=== PATIENT | female | born 1935 | race Caucasian/White ===

== ENCOUNTER 2018-07-11 14:25 | Inpatient (IN) | payer OTHER ==
--- NOTE | 2018-07-11 15:03 | EDPHY ---
H & P Smoking Status: Former smoker Time Seen by Provider: 07/11/18 14:54 HPI/ROS: HPI Short of breath. 82-year-old female by private vehicle with her daughter and . This patient had an upper respiratory infection described as a bronchitis with cough about 6 weeks ago. Since this time she is had ongoing shortness of breath and a sensation of rattling in her lungs. She has not had a fever. Her daughter states that she has some intermittent wheezing at times. She has not had a significant cough. Shortness of breath is worse with exertion. No chest pain. ROS: Constitutional: No fever, no chills. No weakness. Eyes: No discharge. No changes in vision. ENT: No sore throat. No nasal congestion or rhinorrhea. Respiratory: As above. Cardiac: No chest pain, no palpitations. Gastrointestinal: No abdominal pain, no vomiting, no diarrhea. Genitourinary: No hematuria. No dysuria or increased frequency with urination. Musculoskeletal: No back pain. No neck pain. No myalgias or arthralgias. Skin: No rashes. Neurological: No headache. No focal weakness or altered sensation. Past medical history: Hypertension, hyperlipidemia, pancreatic cyst, tonsillectomy, CVA. Social history: Former smoker. No alcohol. Here with and daughter. Physical Exam: General Appearance: Alert, pleasant 82-year-old female, she is not in distress. This patient is responding to questions appropriately and in full sentences. This patient appears well-hydrated and well-nourished. Eyes: Pupils equal and round no pallor or injection. No lid edema, erythema or injection. Respiratory: There are no retractions, lungs have good air movement bilaterally. Scant rhonchi left middle and lower lung bearden, fine crackles at the bilateral bases. No tachypnea. Cardiovascular: Regular rate and rhythm. Borderline tachycardia No murmur appreciated. Gastrointestinal: Abdomen is soft and nontender, no masses, bowel sounds normal. No focal tenderness at McBurney's point. No Berry sign. Neurological: Motor sensory function is grossly intact. Cranial nerves are normal. Gait is normal. Skin: Warm and dry, no rashes. Musculoskeletal: Neck is supple and nontender. Extremities are symmetrical. All joints range without pain or impingement. Psychiatric: No agitation. No depression. Database: EKG: Imaging: Procedures: Emergency department course: Triage vital signs reviewed. She is afebrile. She was tachypneic at 28 and hypoxemic at 86%. These were taken shortly after she arrived at the emergency department. On my exam were tachypnea has resolved. IV was placed. She was placed on a occupational health nurse. Chest x-ray and EKG to be obtained. She was started on oxygen at 2 L by nasal cannula. Care turned over to Dr. James Galeano at 3:00 p.m.. Differential Diagnosis: The differential diagnosis on this patient includes but is not limited to bronchitis, CHF, reactive airway disease, pulmonary embolism, acute coronary syndrome. This represents a partial list of diagnoses considered. These considerations are based on history, physical exam, past history, reassessment and diagnostic testing. (Brook Reardon) Constitutional: Initial Vital Signs Temperature (C) 36.3 C 07/11/18 14:36 Heart Rate 89 07/11/18 14:36 Respiratory Rate 28 H 07/11/18 14:36 Blood Pressure 145/116 H 07/11/18 14:36 O2 Sat (%) 86 L 07/11/18 14:36 O2 Delivery Mode Nasal Cannula O2 (L/minute) 2 Allergies/Adverse Reactions: amoxicillin [Amoxicillin] Allergy (Verified 09/12/13 08:34) DOESN'T FEEL RIGHT Home Medications: Medication Instructions Recorded Citalopram [CeleXA] 20 mg PO DAILY 09/12/13 Multivitamins [Multivitamin (*)] 1 each PO DAILY 09/12/13 Acetaminophen [Tylenol 325mg (*)] 325 mg PO Q6 07/11/18 Allopurinol [Allopurinol 100 MG 100 mg PO DAILY 07/11/18 (*)] Atorvastatin Calcium [Lipitor 20 20 mg PO DAILY 07/11/18 mg (*)] Clopidogrel Bisulfate [Clopidogrel] 75 mg PO DAILY 07/11/18 Diclofenac Sodium 1% [Voltaren Gel 1 emerson TP BID PRN 07/11/18 (*)] Lisinopril [Zestril 40 mg (*)] 40 mg PO DAILY 07/11/18 Sennosides [Senokot 8.6mg (OTC)] 1 each PO DAILY PRN 07/11/18 Medical Decision Making ED Course/Re-evaluation: 1511: Patient was signed over to me at 3:00 p.m. Shift change. Patient here in emergency room shortness of breath. She reports to me she has been rather short of breath and having a cough since April. Her family and her thought maybe she had a cold. However her cough has gotten worse more wet sound ink, she is finally convinced to come to the emergency room. She arrives to the emergency room initial room air saturation 86%. She labored breathing in the 30s. She sounds wet on exam. She denies chest pain. EKG interpretation by me on record in [facility] system. Impression time of EKG 1504, sinus rhythm rate of 88, PVC present, LVH present, Q-waves V1 V2 V3. No ST elevation. Patient significant medical history for hypertension, hyperlipidemia, CVA She is not on any oxygen at home. Differential diagnosis includes: Pneumonia, CHF, ACS, PE, pneumothorax, reactive airway disease DDIMER + 625, will proceed with CT Angio given SOB, Hypoxia. High risk for PE. given Age, sedentary, hyppoxia, Sob. Cxr Reviewed. LLL PNA vs. mass. PAH. Atherosclerosis. 1603: Updated patient about DDIMER results, she has agreed for CTA, Cr ok. Electrolytes ok. CBC show low wbc, low plts. Concerning for infection. Will start Iv Levaquin. 1709: CT angiogram of the chest shows no evidence of PE, however does show bilateral pleural effusions, fluid in the fissures. Concerning for CHF. Patient's BNP elevated. IV Lasix 20 mg been ordered. 1709: Updated family and patient. Spoke with the hospitalist service Dr. Moise agrees to admit Admit to PCU Admit for volume overload. Physical exam is consistent with crackles bilaterally wet sounding breath sounds , patient complains of pink tinged sputum, as well as peripheral edema bilaterally pitting. Concerning for CHF. Patient agrees for admission agrees for transfer to . Dr. Moise Agrees to admit BNP elevated. Iv Lasix Ordered. (James Galeano) - Data Points Medications Given: Albuterol/Ipratropium (Duoneb) 3 ml IH QID [facility] Stop: 01/07/19 20:59 Last Admin: 07/12/18 14:52 Dose: 3 ml Allopurinol (Allopurinol) 100 mg PO DAILY [facility] Stop: 01/08/19 08:59 Last Admin: 07/12/18 09:58 Dose: 100 mg Atorvastatin Calcium (Lipitor) 20 mg PO DAILY [facility] Stop: 01/08/19 08:59 Last Admin: 07/12/18 09:58 Dose: 20 mg Citalopram Hydrobromide (Celexa) 20 mg PO DAILY JAMES Stop: 01/08/19 08:59 Last Admin: 07/12/18 09:58 Dose: 20 mg Clopidogrel Bisulfate (Plavix) 75 mg PO DAILY JAMES Stop: 01/08/19 08:59 Last Admin: 07/12/18 09:58 Dose: 75 mg Furosemide (Lasix Injection) 20 mg IVP BIDDIUR JAMES Stop: 01/08/19 08:59 Last Admin: 07/12/18 09:58 Dose: 20 mg Lisinopril (Zestril) 40 mg PO DAILY JAMES Stop: 01/08/19 08:59 Last Admin: 07/12/18 09:58 Dose: 40 mg Multivitamins (Tab-A-Steven) 1 each PO DAILY JAMES Stop: 01/08/19 08:59 Last Admin: 07/12/18 09:58 Dose: 1 each Spironolactone (Aldactone) 12.5 mg PO DAILY JAMES Stop: 01/08/19 11:44 Last Admin: 07/12/18 12:44 Dose: 12.5 mg Discontinued Medications Albuterol/Ipratropium (Duoneb) 3 ml IH EDNOW ONE Stop: 07/11/18 15:11 Last Admin: 07/11/18 15:30 Dose: 3 ml Enoxaparin Sodium (Lovenox) 30 mg SC DAILY JAMES Stop: 01/08/19 08:59 Last Admin: 07/12/18 09:58 Dose: 30 mg Furosemide (Lasix Injection) 20 mg IVP EDNOW ONE Stop: 07/11/18 17:09 Last Admin: 07/11/18 17:15 Dose: 20 mg Levofloxacin/Dextrose (Levaquin 750 Mg (Premix)) 150 mls @ 100 mls/hr IV EDNOW ONE PRN Reason: Protocol Stop: 07/11/18 17:21 Last Admin: 07/11/18 16:29 Dose: 150 mls Point of Care Test Results: CBC CBC Collection Date 07/11/18 CBC Collection Time 15:17 WBC 2.56 RBC 3.95 HGB 13.1 HCT 40.6 PLT 98 Neut # 0.86 Neut 33.6 LYMPH # 1.47 LYMPH 57.4 MCV 102.8 Chemistry 07/11/18 07/11/18 15:24 15:24 POC Sodium 143 mEq/L mEq/L (135-145) POC Potassium 3.4 mEq/L mEq/L (3.3-5.0) POC Chloride 105.0 mEq/L mEq/L (97-110) POC Total CO2 24 mEq/L mEq/L (22-31) POC BUN 21 mg/dL mg/dL (7-23) POC Creatinine 1.0 mg/dL mg/dL (0.6-1.0) POC Glucose 102 mg/dL H mg/dL (70-100) POC Calcium 9.5 mg/dL mg/dL (8.5-10.4) POC Troponin I 0.03 ng/mL ng/mL (0.00-0.08) D-Dimer D-Dimer Collection Date 07/11/18 D-Dimer Collection Time 15:17 D-Dimer (ng/ml) 625 Departure - Departure Disposition: [facility] Inpatient Acute Clinical Impression: Hypoxia CHF (congestive heart failure) Qualifiers: Heart failure type: other Qualified Code(s): I50.9 - Heart failure, unspecified Pulmonary edema Qualifiers: Chronicity: acute Qualified Code(s): J81.0 - Acute pulmonary edema Condition: Serious
[2018-07-11] MEDS ORDERED: IPRATROPIUM/ALBUTEROL 3 ML DEYVIAL IH ONE (15:10)
[2018-07-11] MEDS ORDERED: IOPAMIDOL (ISOVUE 370) 100 ML BTL IV ONE (16:05)
[2018-07-11] MEDS ORDERED: FUROSEMIDE 20 MG/2 ML VIAL IVP ONE (17:08)
[2018-07-11] MEDS ORDERED: ONDANSETRON 4 MG/2 ML VIAL IVP PRN (19:25)
[2018-07-11] MEDS ORDERED: oxyCODONE IR 5 MG TAB PO PRN (19:25)
[2018-07-11] MEDS ORDERED: HYDROCODONE/APAP 5/325 TAB PO PRN (19:25)
[2018-07-11] MEDS ORDERED: HYDROmorphONE/DILAUDID 1 MG/ML INJ IVP PRN (19:25)
[2018-07-11] MEDS ORDERED: ONDANSETRON DISINTEGRATING 4 MG TAB PO PRN (19:25)
[2018-07-11] MEDS ORDERED: ACETAMINOPHEN 325 MG TAB PO PRN (19:25)
[2018-07-11] MEDS ORDERED: PROMETHAZINE HCL 25 MG/ML INJ IVP PRN (19:25)
[2018-07-11] MEDS ORDERED: ALBUTEROL 3 ML DEYVIAL IH PRN (19:25)
--- NOTE | 2018-07-11 19:59 | PDGENHP ---
History and Physical - Chief Complaint sob - History of Present Illness Patient is an 82 yo F with PMH of HTN, HLD and prior CVA presenting with c/o sob , generalized malaise. Of note patient is somewhat distracted at the time of my evaluation, continues to state she needs to go the bathroom, however even after going to the bathroom has a hard time providing linear history. She notes she has been sick since April, largely with sob and fatigue. She denies significant cough but previously when daughter was present she told ER doctor that she has had wheezing intermittently as well. She denies chest pain, denies fever or chills. She notes that nothing makes these sxs better or worse. She denies any leg swelling that she has noticed. She has not had this in the past. History Information - Allergies/Home Medication List Allergies/Adverse Reactions: amoxicillin [Amoxicillin] Allergy (Verified 09/12/13 08:34) DOESN'T FEEL RIGHT Home Medications: Citalopram [CeleXA] 20 mg PO DAILY 09/12/13 [Last Taken 07/11/18] Multivitamins [Multivitamin (*)] 1 each PO DAILY 09/12/13 [Last Taken Unknown] Acetaminophen [Tylenol 325mg (*)] 325 mg PO Q6 07/11/18 [Last Taken Unknown] Allopurinol [Allopurinol 100 MG (*)] 100 mg PO DAILY 07/11/18 [Last Taken ] Atorvastatin Calcium [Lipitor 20 mg (*)] 20 mg PO DAILY 07/11/18 [Last Taken 01/19] Clopidogrel Bisulfate [Clopidogrel] 75 mg PO DAILY 07/11/18 [Last Taken 07/11/18 ] Diclofenac Sodium 1% [Voltaren Gel (*)] 1 emerson TP BID PRN 07/11/18 [Last Taken Unknown] Lisinopril [Zestril 40 mg (*)] 40 mg PO DAILY 07/11/18 [Last Taken 07/11/18] Sennosides [Senokot 8.6mg (OTC)] 1 each PO DAILY PRN 07/11/18 [Last Taken Unknown] I have personally reviewed and updated: family history, medical history, social history, surgical history - Past Medical History CVA, hypertension, hyperlipidemia, psychiatric history (depression) - Surgical History Reports: no pertinent surgical hx - Family History Positive for: non-pertinent - Social History Smoking Status: Former smoker Alcohol Use: None Drug Use: None Additional social history: Review of Systems Review of Systems: ROS: 10pt was reviewed & negative except for what was stated in HPI & below Physical Exam Physical Exam: Temp Pulse Resp BP Pulse Ox 36.6 C 85 20 149/66 H 96 07/11/18 19:47 07/11/18 19:47 07/11/18 19:47 07/11/18 19:47 07/11/18 19:47 O2 (L/minute) 2 Constitutional: not in pain, chronically ill appearing Eyes: PERRL, anicteric sclera Ears, Nose, Mouth, Throat: moist mucous membranes, poor dentition Cardiovascular: regular rate and rhythym, edema Respiratory: reduced air movement, inspiratory crackles Gastrointestinal: normoactive bowel sounds, soft, non-tender abdomen Genitourinary: no bladder tenderness Skin: warm, erythema (ble hyperpigmented) Musculoskeletal: full muscle strength Neurologic: AAOx3 Psychiatric: interacting appropriately, poor memory Lab Data & Imaging Review 07/11/18 19:42 07/11/18 19:42 POC Sodium 143 mEq/L (135-145) 07/11/18 15:24 POC Potassium 3.4 mEq/L (3.3-5.0) 07/11/18 15:24 POC Chloride 105.0 mEq/L (97-110) 07/11/18 15:24 POC Total CO2 24 mEq/L (22-31) 07/11/18 15:24 POC BUN 21 mg/dL (7-23) 07/11/18 15:24 POC Creatinine 1.0 mg/dL (0.6-1.0) 07/11/18 15:24 POC Glucose 102 mg/dL (70-100) H 07/11/18 15:24 POC Calcium 9.5 mg/dL (8.5-10.4) 07/11/18 15:24 POC Troponin I 0.03 ng/mL (0.00-0.08) 07/11/18 15:24 NT-Pro-B Natriuret Pep 80211 pg/mL (0-450) H 07/11/18 14:15 Visualized and Interpreted Chest x-ray results: Yes Chest X-Ray results: other (cardiomegaly, pulm congesion) Visualized and Interpreted imaging results: Yes Interpretation: CTA: no PE, bibasilar interstitial edema, small pleural effusions, no PNa Visualized and Interpreted EKG results: Yes EKG Interpretation: Positive for: LVH, normal sinsus rhythm Assessment & Plan Assessment: CHF (congestive heart failure) (Acute) Pulmonary edema (Acute) Hypoxia (Acute) 82 yo F with PMH of HTN, HLD, CVA presenting with acute hypoxic respiratory failure found to be 2/2 decompensated CHF # acute hypoxic respiratory failure: in the setting of pulmonary edema, pleural effusions, BNP of 29K and new diagnosis of acute chf. No e/o PNA, no PE or other etiology noted. Was initially 86% on RA with associated sob and increased wob, improved to mid 90s on 2L. # acute CHF: without a prior diagnosis of this however limited past records available, given 20mg IVP lasix in ER and will continue that in am, will get echocardiogram, cardiology consult. monitoring on tele, serial trops/ecg, tsh pending. # HTN: currently well controlled, will continue her home medications of lisinopril # hx of CVA: does not appear to have any significant residual sxs, continue plavix, statin # HLD: continue statin # FC # ? dementia--noted to have memory issues, trouble answering questions appropriately # IP status # Patient new to my care. Old records reviewed and summarized as above. Care plan reviewed with ER doctor as above.
[2018-07-11 20:20] LABS: PLATELET COUNT 98 10^3/uL (150-400)
[2018-07-11] MEDS: IPRATROPIUM/ALBUTEROL 3 ML DEYVIAL IH SCH (22:05)
[2018-07-11] MEDS ORDERED: DICLOFENAC SODIUM 1% 100 GM GEL TP PRN (22:28)
[2018-07-11] MEDS ORDERED: SENNOSIDES 1 TAB PO PRN (22:28)
[2018-07-12] MEDS: IPRATROPIUM/ALBUTEROL 3 ML DEYVIAL IH SCH ×4 (04:46→20:06)
--- NOTE | 2018-07-12 08:23 | HOSPPROG ---
Hospitalist Progress Note Assessment/Plan: DIAGNOSES: * Acute hypoxemic respiratory failure * New onset severe systolic congestive heart failure with global cardiomyopathy uncertain etiology * New diagnosis of bronchiectasis by CT scan * Evidence of emphysema by CT scan * Polygonal Mosaic pattern lung attenuation noted on CT scan, uncertain etiology -Diff dx could include post viral, inflammatory, pulm HTN from her CHF and a long list of others; organizing pneumonia does not appear to be likely present * Hypertension chronic and currently controlled * Macrocytosis with mild neutropenia and thrombocytopenia - chronicity and etiology uncertain last CBC here 9 years ago * Hyperlipidemia on statin * History of stroke * Memory deficits, mild-mod PLANS: * Aggressive diuresis * Low-salt diet and is planned extra time with the patient has been describing the necessity for being compulsive with this * The patient and Dr. 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 Mu Mandel and I reviewed her CT scan images with Dr. Alfredo Lee SUBJECTIVE: Still with some cough Slight improvement in her dyspnea No other changes in symptoms I did review with her and her at length. Her cough and dyspnea symptoms seemed to start in April and were very mild at that time with the whole family had a cold but everyone else got over the symptoms. She did not get over the cough which persisted and she has gradually become more dyspneic and this is accelerated over the past week. She has not noticed edema in her legs but it is clearly present at this time. Difficult to determine how long she has had edema but my exam would met leading believe that this is relatively recent onset, see below She does tell me that she was a smoker of eat generally 15 cigarettes per day for approximately 30 years having quit at age 51 No other concerning lung exposures OBJECTIVE Vitals reviewed: Mild hypertension, some tachypnea at times, stable pulse and no fever [employer], my review: Sinus Exam: alert oriented relaxed, some memory deficits are notable in seem to be at her baseline skin warm dry color a bit pale resps not labored lungs very coarse breath sounds, no wheezing heart regular abd soft nondistended nontender, bowel sounds present limbs warm, market pitting edema of both legs from the knees down to the feet iv site ok Lab data: Potassium 3.3 otherwise stable basic met panel TSH is normal Repeat troponin again is normal PROCEDURES DURING THIS ADMISSION: -echocardiogram I reviewed with Dr. Mu Mandel, ejection fraction 15%, dilated LV with global hypokinesis, biatrial enlargement, mildly dilated right ventricle pulmonary pressures 57 small pericardial effusion -CT scan chest with contrast I reviewed the images in detail with Dr. Alfredo Lee of pulmonology and my assessment differs from that of the radiologist who read the study. I see some mild emphysematous changes in the lung apices, some bronchiectasis and likely related scar at both lung bases, along with polygonal mosaic pattern attenuation in both lungs suggestive of either Objective: Vital Signs Temp Pulse Resp BP Pulse Ox 36.6 C 75 20 156/67 H 96 07/12/18 07:08 07/12/18 07:08 07/12/18 07:08 07/12/18 07:08 07/12/18 07:08 Laboratory Results 07/11/18 19:42 07/12/18 03:44 07/11/18 07/12/18 07/13/18 06:59 06:59 06:59 Intake Total 525 Output Total 800 200 Balance -275 -200 - Time Spent With Patient Time Spent with Patient: greater than 35 minutes Time Spent with Patient: Greater than 35 minutes spent on this patients care, greater than 50% of time spent counseling, educating, and coordinating care regarding the above mentioned plan. ICD10 Worksheet Patient Problems: Problems Problem Status Onset CHF (congestive heart failure) Acute Hypoxia Acute Pulmonary edema Acute
[2018-07-12] MEDS ORDERED: ENOXAPARIN 30 MG/0.3 ML SYR SC SCH (09:00)
--- NOTE | 2018-07-12 09:23 | ECHO ---
[email or web address] [address] Main: [phone] Echocardiography Examination Transthoracic Name: JAIME MCCARTHY MR#: [id number] Study Date: 07/12/2018 Study Time: 07:34 AM Date of : 1935 Age: 82 year(s) Height: 180.3 cm (71 in.) Weight: 65.32 kg (144 lb.) BSA: 1.83 m2 Gender: Female Examination: Echo Contrast: Image Quality: Rhythm: Normal sinus rhythm with ectopy Heart Rate: 48 bpm BP: 156 mmHg/67 mmHg Indication: Pulmonary Edema, CHF, Edema Procedure Staff Referring Physician: Research Asst: Chapo Lucia RDCS Reading Physician: Izaiah Mandel MD Requesting Provider: Indication: Pulmonary Edema, CHF, Edema Measurements Chambers AV/MV Label Value Normal Value Label Value Normal Value LVOT Vmax 0.7 m/s (0.7m/s - 1.1m/s) AV PGmax 8 mmHg LVOTd 1.9 cm (1.8cm - 2cm) AV PGmean 3 mmHg LVOT VTI 12.9 cm (18cm - 22cm) AV Vmax 1.4 m/s LVDd, MM 5.7 cm (3.9cm - 5.3cm) MANDO (Vmax) 1.4 cm2 LVDd, 2D 5.4 cm (3.9cm - 5.3cm) MANDO (VTI) 1.5 cm2 LVDs, MM 5.1 cm (2cm - 3.8cm) MV E Vmax 0.68 m/s LVDs, 2D 4.8 cm (2.1cm - 4cm) MV A Vmax 1.05 m/s IVSd, MM 0.9 cm (0.6cm - 0.9cm) MV E/A 0.65 IVSd, 2D 1.1 cm (0.6cm - 1.1cm) MV E/E' lateral 10.6 LVPWd, MM 1 cm (0.6cm - 0.9cm) MV E/E' septal 25.9 (0.45 - 1.25) LVPWd, 2D 1.1 cm MV E' septal 0.03 m/s LVEF, BP 14 % (55% - 70%) MV VTI 23 cm LVEF, 2D 20 % (54% - 74%) MVA D (continuity eq.) 1.6 cm2 LVOT PGmean 1 mmHg MV PGmax 4 mmHg LVOT Vmean 0.45 m/s MV PGmean 2 mmHg RVDd, 2D 2.6 cm (1.9cm - 3.8cm) MV Melida 4.1 cm LA Volume, BP 100 ml (22ml - 52ml) MR Vena Contracta 0.6 cm LADs, 2D 3.6 cm (2.7cm - 3.8cm) MR Reg. Volume 39 ml LAESV index, BP 54.6 ml/m2 MR Reg. Fraction 13 % Additional Vessels MR Vmax 4.4 m/s Patient: JAIME MCCARTHY Study Date: 07/12/2018 Page 1 of 3 07:34 AM Label Value Normal Value MR VTI 177 cm AoRoot, MM 2.9 cm (2.2cm - 3.7cm) MR (ERO) 0.22 cm2 MV E' lateral 0.06 m/s MR PISA Radius 0.7 cm MV E/E' mean 15.11 MR PISA Alias V. 30.8 cm/s MV E' mean 0.04 m/s TV/PV Label Value Normal Value RA Pressure 5 mmHg RVSP 57 mmHg TR Pmax 52 mmHg TR Vmax 3.61 m/s NJ End vera Brad 1.57 cm/s PV PGmax 3 mmHg PV Vmax, Caliper 0.8 m/s (0.6m/s - 0.9m/s) Conclusions The left ventricle appears to be mildly dilated. There is severe global left ventricular hypokinesis with ejection fraction visually estimated at 15-20%. Grade 2 diastolic dysfunction is noted. The right ventricle is mildly dilated with mildly reduced RV systolic function. There is severe left atrial enlargement with moderate right atrial enlargement. Mild mitral annular calcification and aortic sclerosis is present. There is [id number] mitral regurgitation, mild aortic regurgitation and mild tricuspid regurgitation. The estimated RVSP is 57 mmHg. There is a small pericardial effusion. No prior studies. Findings Left Ventricle: Left ventricle is mildly dilated. The EF is visually estimated to be 20 %. EF range is estimated at 15 % - 20 %. There is mild concentric left ventricular hypertrophy. Global hypokinesis. Grade II Diastolic Dysfunction. Left Ventricular Measurements LVDd, 2D is 5.4 cm. Right Ventricle: Normal size right ventricle. Mildly to moderately reduced RV function. Left Atrium: The left atrium is severely dilated. Right Atrium: The right atrium is moderately to severely dilated. Mitral Valve: Mild to moderate mitral regurgitation. No mitral valve stenosis. There is mild mitral calcification. Aortic Valve: Mild aortic regurgitation is present. There is no aortic stenosis. Aortic leaflets exhibit mild calcification. The aortic valve is trileaflet. Tricuspid Valve: Mild tricuspid regurgitation. Right Ventricular systolic pressure is measured at 57 mmHg. Pulmonary artery pressure moderately increased. Pulmonic Valve: Moderate pulmonic valve regurgitation is present. Aorta: The aorta is normal. The aortic root size in M-mode measures 2.9 cm. Aorta Measurements AoRoot, MM is 2.9 cm. Patient: JAIME MCCARTHY Study Date: 07/12/2018 Page 2 of 3 07:34 AM Pericardium: A small pericardial effusion was identified. Exam Details Procedure Ordered: Echo (No Signature Object) Patient: JAIME MCCARTHY Study Date: 07/12/2018 Page 3 of 3 07:34 AM [id number]
[2018-07-12] MEDS: ALLOPURINOL 100 MG TAB PO SCH (09:58)
[2018-07-12] MEDS: ATORVASTATIN CALCIUM 20 MG TAB PO SCH (09:58)
[2018-07-12] MEDS: CITALOPRAM 20 MG TAB PO SCH (09:58)
[2018-07-12] MEDS: CLOPIDOGREL BISULFATE 75 MG TAB PO SCH (09:58)
[2018-07-12] MEDS: FUROSEMIDE 20 MG/2 ML VIAL IVP SCH ×2 (09:58→17:00)
[2018-07-12] MEDS: MULTIVITAMINS 1 EACH TAB PO SCH (09:58)
[2018-07-12] MEDS: LISINOPRIL 40 MG TAB PO SCH (09:58)
--- NOTE | 2018-07-12 11:43 | PDCARCONS ---
Cardiology Consult Reason for Consult: New onset congestive heart failure. Chief Complaint: Shortness of breath, fatigue and cough. Requesting Physician: Dr. Nhung Moise. History of Present Illness: This is a pleasant 82-year-old female seen in consultation on the progressive care unit. She has no prior history of underlying structural, ischemic or arrhythmic heart disease. She did suffer a stroke several years ago. 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 We do not have that information at the present time however she was told that the echocardiogram was noted to be normal. She and her live independently. She walks with a walker and does not drive however overall considers herself fairly healthy. She has had about 8 weeks of symptoms of fatigue associated with exertional dyspnea and a nonproductive cough. She has not had orthopnea or PND. She notes no fever, chills or sweats. She notes no palpitations or anginal quality chest discomfort. Because of these symptoms she came to the emergency department. On arrival to the emergency department she was noted to be hypertensive at 149/66. On 2 L nasal cannula saturations were in the 90% range. Her initial ECG indicated snore will sinus rhythm at 88 beats per minute with occasional PVCs, left axis deviation, left atrial enlargement, left ventricular hypertrophy and strain. Cardiac enzymes have been negative x3. [place] [address]648. Her chest x-ray demonstrated cardiomegaly and pulmonary vascular congestion. She has been admitted to telemetry. She has been started on IV diuretics with a modest improvement in symptoms overnight. History Information - Allergies/Home Medication List Allergies/Adverse Reactions: amoxicillin [Amoxicillin] Allergy (Verified 09/12/13 08:34) DOESN'T FEEL RIGHT Home Medications: Citalopram [CeleXA] 20 mg PO DAILY 09/12/13 [Last Taken 07/11/18] Multivitamins [Multivitamin (*)] 1 each PO DAILY 09/12/13 [Last Taken Unknown] Acetaminophen [Tylenol 325mg (*)] 325 mg PO Q6 07/11/18 [Last Taken Unknown] Allopurinol [Allopurinol 100 MG (*)] 100 mg PO DAILY 07/11/18 [Last Taken ] Atorvastatin Calcium [Lipitor 20 mg (*)] 20 mg PO DAILY 07/11/18 [Last Taken 01/19] Clopidogrel Bisulfate [Clopidogrel] 75 mg PO DAILY 07/11/18 [Last Taken 07/11/18 ] Diclofenac Sodium 1% [Voltaren Gel (*)] 1 emerson TP BID PRN 07/11/18 [Last Taken Unknown] Lisinopril [Zestril 40 mg (*)] 40 mg PO DAILY 07/11/18 [Last Taken 07/11/18] Sennosides [Senokot 8.6mg (OTC)] 1 each PO DAILY PRN 07/11/18 [Last Taken Unknown] I have personally reviewed and updated: family history, medical history, social history, surgical history Past Medical History: Hypertension, hyperlipidemia, prior stroke, history of depression, history of gastric ulcer taking aspirin at the time. - Surgical History Additional surgical history: She recalls having had some form of pancreatic surgery many years ago. - Social History Smoking Status: Former smoker (2 packs a day quit many years ago.) Alcohol Use: None Drug Use: None Additional social history: She is and accompanied by her . The 2 of them live independently. Their son does live with them and helps with her care. She walks with a walker. Physical Exam Physical Exam: Temp Pulse Resp BP Pulse Ox 36.6 C 79 24 H 135/90 H 99 07/12/18 11:01 07/12/18 11:01 07/12/18 11:01 07/12/18 11:01 07/12/18 11:01 O2 (L/minute) 2 Constitutional: no apparent distress, appears nourished, not in pain Eyes: PERRL, anicteric sclera, EOMI Ears, Nose, Mouth, Throat: moist mucous membranes, hearing normal, ears appear normal, no oral mucosal ulcers Cardiovascular: regular rate and rhythym, no murmur, rub, or gallop, JVD (To the upper neck at 30 degrees), edema (1 quarter-inch pitting bilateral lower extremity edema to the lower kelsey), other (Frequent extrasystoles) Respiratory: no respiratory distress, no rales or rhonchi, clear to auscultation Gastrointestinal: normoactive bowel sounds, soft, non-tender abdomen, no palpable masses Genitourinary: no bladder fullness, no bladder tenderness Skin: warm, normal color, no rashes or abrasions, no fluctuance, no induration, No mottled Musculoskeletal: full muscle strength, no muscle tenderness, normal joint ROM, no joint effusions Psychiatric: interacting appropriately, not anxious, not encephalopathic, thought process linear Lymph, Heme, Immunologic: no cervical LAD, no supraclavicular LAD Lab and Imaging 07/11/18 19:42 07/12/18 03:44 WBC 2.73 10^3/uL (3.80-9.50) L 07/11/18 19:42 RBC 4.00 10^6/uL (4.18-5.33) L 07/11/18 19:42 Hgb 13.3 g/dL (12.6-16.3) 07/11/18 19:42 Hct 41.2 % (38.0-47.0) 07/11/18 19:42 MCV 103.0 fL (81.5-99.8) H 07/11/18 19:42 MCH 33.3 pg (27.9-34.1) 07/11/18 19:42 MCHC 32.3 g/dL (32.4-36.7) L 07/11/18 19:42 RDW 16.8 % (11.5-15.2) H 07/11/18 19:42 Plt Count 98 10^3/uL (150-400) L 07/11/18 19:42 MPV 11.1 fL (8.7-11.7) 07/11/18 19:42 Neut % (Auto) Not Reported 07/11/18 19:42 Lymph % (Auto) Not Reported 07/11/18 19:42 [place] % (Auto) Not Reported 07/11/18 19:42 Eos % (Auto) Not Reported 07/11/18 19:42 Baso % (Auto) Not Reported 07/11/18 19:42 Nucleat RBC Rel Count Not Reported 07/11/18 19:42 Absolute Neuts (auto) Not Reported 07/11/18 19:42 Absolute Lymphs (auto) Not Reported 07/11/18 19:42 Absolute Monos (auto) Not Reported 07/11/18 19:42 Absolute Eos (auto) Not Reported 07/11/18 19:42 Absolute Basos (auto) Not Reported 07/11/18 19:42 Absolute Nucleated RBC Not Reported 07/11/18 19:42 Immature Gran % Not Reported 07/11/18 19:42 Seg Neutrophils % 49.0 % 07/11/18 19:42 Band Neutrophils % 1.0 % 07/11/18 19:42 Lymphocytes % 39.0 % 07/11/18 19:42 Monocytes % 8.0 % 07/11/18 19:42 Eosinophils % 0.0 % 07/11/18 19:42 Basophils % 1.0 % 07/11/18 19:42 Metamyelocytes % 2.0 % 07/11/18 19:42 Myelocytes % 0.0 % 07/11/18 19:42 Promyelocytes % 0.0 % 07/11/18 19:42 Blast Cells % 0.0 % 07/11/18 19:42 Immature Gran # Not Reported 07/11/18 19:42 Absolute Seg Neuts 1.34 10^3/uL (1.70-6.50) L 07/11/18 19:42 Absolute Band Neuts 0.03 10^3/uL (0.00-0.70) 07/11/18 19:42 Absolute Lymphocytes 1.06 10^3/uL (1.00-3.00) 07/11/18 19:42 Absolute Monocytes 0.22 10^3/uL (0.30-0.80) L 07/11/18 19:42 Absolute Eosinophils 0.00 10^3/uL (0.03-0.40) L 07/11/18 19:42 Absolute Basophils 0.03 10^3/uL (0.02-0.10) 07/11/18 19:42 Absolute Metamyelocyte 0.05 10^3/mL (0.00-0.00) H 07/11/18 19:42 Absolute Myelocytes 0.00 10^3/mL (0.00-0.00) 07/11/18 19:42 Absolute Promyelocytes 0.00 10^3/uL (0.00-0.00) 07/11/18 19:42 Absolute Plasma Cells 0.00 10^3/uL (0.00-0.00) 07/11/18 19:42 Nucleated RBCs 0 /100 WBC (0-0) 07/11/18 19:42 Absolute Blast Cells 0.00 10^3/uL (0.00-0.00) 07/11/18 19:42 Plasma Cells % 0.0 % 07/11/18 19:42 Platelet Estimate DECREASED (ADEQ) L 07/11/18 19:42 Polychromasia 1+ H 07/11/18 19:42 Oval Macrocytes 1+ H 07/11/18 19:42 Elliptocytes 1+ H 07/11/18 19:42 POC Sodium 143 mEq/L (135-145) 07/11/18 15:24 Sodium 136 mEq/L (135-145) 07/12/18 03:44 POC Potassium 3.4 mEq/L (3.3-5.0) 07/11/18 15:24 Potassium 3.3 mEq/L (3.5-5.2) L 07/12/18 03:44 POC Chloride 105.0 mEq/L (97-110) 07/11/18 15:24 Chloride 103 mEq/L (97-110) 07/12/18 03:44 Carbon Dioxide 27 mEq/l (22-31) 07/12/18 03:44 POC Total CO2 24 mEq/L (22-31) 07/11/18 15:24 Anion Gap 6 mEq/L (6-14) 07/12/18 03:44 POC BUN 21 mg/dL (7-23) 07/11/18 15:24 BUN 20 mg/dL (7-23) 07/12/18 03:44 Creatinine 0.8 mg/dL (0.6-1.0) 07/12/18 03:44 POC Creatinine 1.0 mg/dL (0.6-1.0) 07/11/18 15:24 Estimated GFR > 60 07/12/18 03:44 Glucose 80 mg/dL (70-100) 07/12/18 03:44 POC Glucose 102 mg/dL (70-100) H 07/11/18 15:24 POC Calcium 9.5 mg/dL (8.5-10.4) 07/11/18 15:24 Calcium 8.6 mg/dL (8.5-10.4) 07/12/18 03:44 POC Troponin I 0.03 ng/mL (0.00-0.08) 07/11/18 15:24 Troponin I 0.014 ng/mL (0.000-0.034) 07/12/18 03:44 NT-Pro-B Natriuret Pep 35924 pg/mL (0-450) H 07/11/18 14:15 TSH 2.780 uIU/mL (0.465-4.680) 07/11/18 19:42 Visualized and Interpreted Chest x-ray results: Yes Visualized and Interpreted EKG results: Yes EKG additional interpertation: Normal sinus rhythm at 88 beats per minute. Occasional PVCs. Left axis deviation, left atrial enlargement, LVH with strain. Telemetry: Sinus rhythm. Echocardiogram: There is a full and separately dictated report in the chart. A/P Assessment: This is an 82-year-old female who has a cardiovascular history significant for hypertension and hyperlipidemia who presents with an 8 week history of symptoms of exertional dyspnea, fatigue and nonproductive cough. Her workup thus far including an echocardiogram that indicates an ejection fraction below 20%, and elevated brain natriuretic peptide, abnormal chest x-ray and physical exam findings suggest a new diagnosis of congestive heart failure. Based on the appearance of her echo I think this is most likely nonischemic in nature however she has not had a formal ischemic workup. It may be that this is a hypertensive cardiomyopathy or possibly a postviral cardiomyopathy. It does not appear that she has significant valvular heart disease. While she does have occasional PVCs I think it is unlikely that this represents a PVC induced cardiomyopathy. Plan: 1. She has been admitted and will be monitored on telemetry. 2. She has been started on twice daily IV Lasix. 3. She is already on maximum dose Bradley inhibitor therapy. 4. I started her on a low-dose of Aldactone 12.5 mg once daily. 5. I have also written for her to be on introductory doses of Coreg at 3.125 mg twice daily. 6. We will plan to continue outpatient doses of clopidogrel and atorvastatin. 7. She and I briefly discussed the possibility of proceeding with coronary angiography. She states that she would be willing to undergo this procedure and any cardiovascular therapies that might improve her ejection fraction and outcome. 8. We will follow along with you. Review of Systems Review of Systems: - Review of Systems Constitutional: no symptoms reported EENTM: no symptoms reported Respiratory: see HPI Cardiac: see HPI Gastrointestinal/Abdominal: no symptoms reported Genitourinary: no symptoms Musculoskelatal: no symptoms Skin: no symptoms Neurological: no symptoms Hematologic/Lymphatic: no symptoms reported Immunologic/allergic: no symptoms reported All Other Systems: Reviewed and Negative
[2018-07-12] MEDS: SPIRONOLACTONE 25 MG TAB PO SCH (12:44)
--- NOTE | 2018-07-12 12:52 | PDMN ---
Medical Necessity Medical necessity: Pt meets IP criteria per & MCG M-190; est los >2 mn for eval/tx of new-onset CHF w/hypoxic respiratory failure (requiring 2L O2 to maintain sats >90%) in the setting of pulmonary edema & pleural effusions; admit for further workup/monitoring, Cardiology consult & IV diuretics; comorbid advanced age, CVA, possible dementia; per H&P & order 07/11/18
--- NOTE | 2018-07-12 13:37 | CPEKG ---
Test Reason : OPEN Blood Pressure : / mmHG Vent. Rate : 088 BPM Atrial Rate : 086 BPM P-R Int : 168 ms QRS Dur : 094 ms QT Int : 398 ms P-R-T Axes : 081 -34 129 degrees QTc Int : 482 ms Sinus rhythm Ventricular premature complex LVH with secondary repolarization abnormality Anterior infarct, old Confirmed by Chandni Mathur ([id number]) on 07/12/2018 1:36:40 PM Referred By: Brook Reardon Confirmed By:Chandni Mathur
[2018-07-12] MEDS: AZITHROMYCIN 250 MG TAB PO SCH (16:07)
[2018-07-12] MEDS: FUROSEMIDE 40 MG/4 ML VIAL IVP SCH (16:07)
--- NOTE | 2018-07-12 16:39 | ASMTCMCOM ---
CM Note CM Note Notes: Pt in for CHF, resides with and has dghtr local. Today OT rec home care, PT rec SNF. Spoke with pt and Juan at bedside. This CM provided [facility] SNF list and provided education. Pt plans to discuss with family and let CM know thoughts on SNF tomorrow. Juan plans to drive to visit pt daily so a close location is important, they report [facility] and [facility] are closest SNFs to pt home. CM to follow. D/c plan of care: SNF vs C Date Signed: 07/12/2018 04:38 PM Electronically Signed By:KATHLEEN Tyler
[2018-07-12] MEDS: CARVEDILOL 3.125 MG TAB PO SCH (18:13)
--- NOTE | 2018-07-12 20:15 | CPEKG ---
Test Reason : OPEN Blood Pressure : / mmHG Vent. Rate : 076 BPM Atrial Rate : 077 BPM P-R Int : 156 ms QRS Dur : 092 ms QT Int : 422 ms P-R-T Axes : 078 -33 172 degrees QTc Int : 475 ms Sinus rhythm Ventricular trigeminy left anterior fasicular block anterior q waves Confirmed by William Loera ([id number]) on 07/12/2018 8:14:52 PM Referred By: Nhung Moise Confirmed By:William Loera
[2018-07-13] MEDS: IPRATROPIUM/ALBUTEROL 3 ML DEYVIAL IH SCH ×2 (05:07→10:44)
[2018-07-13] MEDS: AZITHROMYCIN 250 MG TAB PO SCH (08:32)
[2018-07-13] MEDS: LISINOPRIL 40 MG TAB PO SCH (08:33)
[2018-07-13] MEDS: SPIRONOLACTONE 25 MG TAB PO SCH (08:34)
[2018-07-13] MEDS: ALLOPURINOL 100 MG TAB PO SCH (08:34)
[2018-07-13] MEDS: MULTIVITAMINS 1 EACH TAB PO SCH (08:34)
[2018-07-13] MEDS: ATORVASTATIN CALCIUM 20 MG TAB PO SCH (08:34)
[2018-07-13] MEDS: CLOPIDOGREL BISULFATE 75 MG TAB PO SCH (08:34)
[2018-07-13] MEDS: FUROSEMIDE 40 MG/4 ML VIAL IVP SCH (08:35)
[2018-07-13] MEDS: CARVEDILOL 3.125 MG TAB PO SCH (08:35)
[2018-07-13] MEDS: ENOXAPARIN 40 MG/0.4 ML SYR SC SCH (08:35)
[2018-07-13] MEDS: CITALOPRAM 20 MG TAB PO SCH (08:35)
[2018-07-13] MEDS ORDERED: CARVEDILOL 3.125 MG TAB PO SCH (09:33)
--- NOTE | 2018-07-13 10:07 | SOAPPROG ---
[facility] Progress Note Assessment/Plan: Assessment: 82-year-old female with a newly diagnosed cardiomyopathy with an ejection fraction of below 20% associated with new onset congestive heart failure. This is likely nonischemic in nature. She does not have associated significant valvular disease. She is doing well with the recent institution of diuretic therapy and the administration of beta-blockers. Her chemistry panel this morning was significantly abnormal with a very low chloride level. Plan: 1. I did increase her Coreg up to 6.25 mg twice daily. 2. I have given a dose of p.o. Potassium. 3. I would like to recheck her chemistries this afternoon. 4. We will plan to continue with IV Lasix. 5. At some point in the near future we will plan a diagnostic right and left heart catheterization. 07/13/18 10:05 Subjective: She is doing well today and has no specific cardiovascular complaints. She has had a net 1225 cc diuresis since admission. Lower extremity edema has improved. She notes that she is breathing a little more easily currently. She has been started on low-dose Coreg and tolerating this medication without side effects. Telemetry indicates sinus rhythm with frequent PVCs. Objective: Vital Signs Temp Pulse Resp BP Pulse Ox 36.6 C 88 15 140/64 H 91 L 07/13/18 09:01 07/13/18 09:01 07/13/18 09:01 07/13/18 09:01 07/13/18 09:01 Laboratory Results 07/11/18 19:42 07/13/18 04:20 07/12/18 07/13/18 07/14/18 05:59 05:59 05:59 Intake Total 400 300 Output Total 550 1250 Balance -150 -950 Physical Exam - Physical Exam General Appearance: WD/WN, no apparent distress Neck: non-tender, full range of motion Respiratory: chest non-tender, lungs clear, decreased breath sounds (Right base) Cardiac/Chest: regular rate, rhythm, edema (Trace), JVD, No gallop Peripheral Pulses: 2+: carotid (R), carotid (L) Abdomen: non-tender, soft Pelvic Exam: deferred Rectal: deferred ICD10 Worksheet Patient Problems: Problems Problem Status Onset CHF (congestive heart failure) Acute Hypoxia Acute Pulmonary edema Acute chronic disease mgmt/transitional care Acute
[2018-07-13] MEDS: POTASSIUM CL 20 MEQ TAB PO ONE ×2 (10:23→10:28)
[2018-07-13] MEDS ORDERED: PROTOCOL MAGNESIUM 1 DOSE IV PRN (12:17)
[2018-07-13] MEDS ORDERED: PROTOCOL POTASSIUM 1 DOSE MISC PRN (12:17)
--- NOTE | 2018-07-13 12:27 | HOSPPROG ---
Hospitalist Progress Note Assessment/Plan: DIAGNOSES: * Acute hypoxemic respiratory failure * New onset severe systolic congestive heart failure with global cardiomyopathy uncertain etiology * Hypomagnesemia, hypochloremia, hypokalemia * New diagnosis of bronchiectasis by CT scan * New diagnosis of COPD * Polygonal Mosaic pattern lung attenuation noted on CT scan, uncertain etiology -Diff dx could include post viral, inflammatory, pulm HTN from her CHF and a long list of others; organizing pneumonia does not appear to be likely present * Hypertension chronic and currently controlled * Macrocytosis with mild neutropenia and thrombocytopenia - chronicity and etiology uncertain last CBC here 9 years ago * Hyperlipidemia on statin * History of stroke * Memory deficits, mild-mod PLANS: * Continue IV Lasix and p.o. Aldactone diuresis * Begin replacement of electrolytes by protocol * Low-salt diet and I spent extra time with the patient has been describing the necessity for being compulsive with this * Left heart catheterization and right heart catheterization in near future * Will begin Combivent meter dose inhaler therapy using a spacer and have respiratory therapy work with her on a education for inhaler use, will also add Advair * I have ordered vitamin B12 level as she has macrocytosis * Sed rate and CRP ordered * Continue empiric azithromycin at present * Will try to get records from her previous [facility]er where she had an echocardiogram 4 years ago * Discussed in detail with the patient and her that she will need very careful and consistent outpatient follow-up in Heart failure Clinic along with pulmonology Clinic Seen by me on hospitalist rounds as well as multidisciplinary rounds today Reviewed with Dr. Mandel for Cardiology SUBJECTIVE: Some improvement in dyspnea today No new symptoms OBJECTIVE Vitals reviewed: All stable without fever I&O approximately 1 L out overnight Derrick Hand, my review: Sinus Exam: alert oriented relaxed, some memory deficits are notable in seem to be at her baseline skin warm dry color a bit pale resps not labored lungs still with coarse breath sounds, no wheezing heart regular abd soft nondistended nontender, bowel sounds present limbs warm, still with edema of both legs with pitting but less than yesterday iv site ok Lab data: K and Mag a bit low Renal function stable Notably has appeared to develop high anion gap but with a high CO2 level this appears to be caused by a low chloride level in her case TSH is normal PROCEDURES DURING THIS ADMISSION: -echocardiogram I reviewed with Dr. Mu Mandel, ejection fraction 15%, dilated LV with global hypokinesis, biatrial enlargement, mildly dilated right ventricle pulmonary pressures 57 small pericardial effusion -CT scan chest with contrast I reviewed the images in detail with Dr. Alfredo Lee of pulmonology and my assessment differs from that of the radiologist who read the study. I see some mild emphysematous changes in the lung apices, some bronchiectasis and likely related scar at both lung bases, along with polygonal mosaic pattern attenuation in both lungs suggestive of either -bedside spirometry Objective: Vital Signs Temp Pulse Resp BP Pulse Ox 36.7 C 76 18 125/68 H 93 07/13/18 11:55 07/13/18 11:55 07/13/18 11:55 07/13/18 11:55 07/13/18 11:55 Laboratory Results 07/11/18 19:42 07/13/18 04:20 07/12/18 07/13/18 07/14/18 06:59 06:59 06:59 Intake Total 400 300 Output Total 550 1250 Balance -150 -950 - Time Spent With Patient Time Spent with Patient: greater than 35 minutes Time Spent with Patient: Greater than 35 minutes spent on this patients care, greater than 50% of time spent counseling, educating, and coordinating care regarding the above mentioned plan. ICD10 Worksheet Patient Problems: Problems Problem Status Onset CHF (congestive heart failure) Acute Hypoxia Acute Pulmonary edema Acute chronic disease mgmt/transitional care Acute
--- NOTE | 2018-07-13 14:58 | ASMTCMCOM ---
CM Note CM Note Notes: 07/13/2018 Case Management Note Met w/pt Juan [phone] and daughter Ingrid [phone]. Discussed recommendation for SNF rehab. All in agreement. First choice is [facility]. Faxed referrals to [facility] and [facility]. Both accepted pt. Pt chose [facility] which is close to home and easier for Juan to visit daily. Case Management d/c poc: [facility]. Case Management to follow. Date Signed: 07/13/2018 02:57 PM Electronically Signed By:Michelle Lane RN
[2018-07-13] MEDS: IPRATROPIUM/ALBUTEROL 4GM MDI IH SCH ×2 (15:19→22:10)
[2018-07-13] MEDS ORDERED: MAGNESIUM SULF 2 GM/WATER 50 ML IV ONE (15:31)
[2018-07-13] MEDS: CARVEDILOL 6.25 MG TAB PO SCH (17:33)
[2018-07-13] MEDS ORDERED: POTASSIUM CL 10 MEQ TAB PO ONE (19:35)
[2018-07-13] MEDS: FLUTICASONE/SALMETER 100/50MCG DISKUS IH SCH (22:10)
[2018-07-14 04:32] LABS: PLATELET COUNT 98 10^3/uL (150-400)
[2018-07-14] MEDS: IPRATROPIUM/ALBUTEROL 4GM MDI IH SCH ×4 (05:25→20:18)
[2018-07-14] MEDS ORDERED: POTASSIUM CL 10 MEQ TAB PO ONE (08:14)
[2018-07-14] MEDS: ATORVASTATIN CALCIUM 20 MG TAB PO SCH (08:36)
[2018-07-14] MEDS: CITALOPRAM 20 MG TAB PO SCH (08:37)
[2018-07-14] MEDS: ALLOPURINOL 100 MG TAB PO SCH (08:37)
[2018-07-14] MEDS: CLOPIDOGREL BISULFATE 75 MG TAB PO SCH (08:37)
[2018-07-14] MEDS: CARVEDILOL 6.25 MG TAB PO SCH ×2 (08:37→17:12)
[2018-07-14] MEDS: MULTIVITAMINS 1 EACH TAB PO SCH (08:37)
[2018-07-14] MEDS: SPIRONOLACTONE 25 MG TAB PO SCH (08:37)
[2018-07-14] MEDS: LISINOPRIL 40 MG TAB PO SCH (08:38)
[2018-07-14] MEDS: AZITHROMYCIN 250 MG TAB PO SCH (08:38)
[2018-07-14] MEDS: ENOXAPARIN 40 MG/0.4 ML SYR SC SCH (08:38)
[2018-07-14] MEDS: FUROSEMIDE 20 MG/2 ML VIAL IVP SCH (08:39)
[2018-07-14] MEDS: FLUTICASONE/SALMETER 100/50MCG DISKUS IH SCH ×2 (10:20→20:18)
--- NOTE | 2018-07-14 12:42 | PDCARPN ---
Cardiology Progress Note Chief Complaint: SOB Assessment/Plan: Assessment: Vernell is a 82-year-old female with a newly diagnosed cardiomyopathy with EF 20%, and new onset CHF. This is likely nonischemic. She does not have associated significant valvular disease. She is doing well on diuretic therapy and beta-blockers. Creatinine 0.8 today. Coreg up-titrated to 6.25 mg twice daily yesterday with good tolerance. She reports no lightheadedness or SOB. Plan: We continue IV Lasix today, with consideration to switch to Lasix oral tomorrow. Plan for diagnostic right and left heart catheterization before discharge. 07/14/18 12:28 Subjective: I feel better today. My breathing is easier. Reviewed/Discussed With: family (), hospitalist (Chandler Boyd MD -- Hospitalist), multidisciplinary team, other (Mu Mandel MD) Time Spent with Patient: greater than 25 minutes Time Spent with Patient: Greater than 25 minutes spent on this patients care, greater than 50% of time spent counseling, educating, and coordinating care regarding the above mentioned plan. Objective: Vital Signs (8 Hrs) Temp Pulse Resp BP Pulse Ox 07/14/18 11:39 36.4 C 77 16 114/62 98 07/14/18 08:37 81 137/83 H 07/14/18 07:39 36.6 C 79 20 137/83 H 97 07/14/18 05:26 74 16 Intake/Output (24 Hrs) 07/13/18 07/14/18 07/15/18 05:59 05:59 05:59 Intake Total 300 Output Total 1250 2000 Balance -950 -2000 Intake: Oral (ml) 300 IV Intake (ml) 0 Output: Urine (ml) 1250 2000 Bedside Commode 1050 1000 Catheter 1000 Incontinence 200 Other: Weight 61.2 kg Number of Voids Bedside Commode 1 Incontinence 3 1 1 Result Diagrams: 07/14/18 03:40 07/14/18 03:40 Cardiac Labs: Cardiac Lab Results (72 Hrs) 07/12/18 07/11/18 03:44 19:42 Troponin I 0.014 0.013 - Physical Exam Constitutional: no apparent distress Cardiovascular: regular rate and rhythm, no rubs, no gallops Peripheral Pulses: 1+: dorsalis-pedis (R), dorsalis-pedis (L) Respiratory: no crackles, no wheezes, reduced air movement Skin: warm, no edema Neurologic: AAOx3 Psychiatric: cooperative, interactive ICD10 Worksheet Patient Problems: Problems Problem Status Onset chronic disease mgmt/transitional care Acute CHF (congestive heart failure) Acute Pulmonary edema Acute Hypoxia Acute
--- NOTE | 2018-07-14 12:59 | HOSPPROG ---
Hospitalist Progress Note Assessment/Plan: DIAGNOSES: * Acute hypoxemic respiratory failure - multiple etiologies, with acute systolic CHF prominent * New onset severe systolic congestive heart failure with global cardiomyopathy uncertain etiology * Hypomagnesemia, hypochloremia, hypokalemia * New diagnosis of bronchiectasis by CT scan * New diagnosis of COPD * Polygonal Mosaic pattern lung attenuation noted on CT scan, uncertain etiology -Diff dx could include post viral, inflammatory, pulm HTN from her CHF and a long list of others; organizing pneumonia does not appear to be likely present * Hypertension chronic and currently controlled * Macrocytosis with pancytopenia - chronicity and etiology uncertain last CBC here 9 years ago -neutrophils and platelets lower today * Hyperlipidemia on statin * History of stroke * Memory deficits, mild-mod, chronic and stable PLANS: * Switch to p.o. Lasix, continue Aldactone * Begin replacement of electrolytes by protocol * Low-salt diet * Left heart catheterization and right heart catheterization in near future as outpatient * Continue new Combivent and Advair inhalers * At some point she should have hematologic assessment for her macrocytic anemia * Sed rate and CRP ordered * Continue empiric azithromycin at present * Continue attempt increase activity with physical occupational therapy * Will need care home facility at discharge * Will need chronic follow-up in Heart failure Clinic and pulmonology Clinic Seen by me on hospitalist rounds as well as multidisciplinary rounds today Reviewed with Dr. Mandel of Cardiology SUBJECTIVE: Some improvement in dyspnea today No new symptoms OBJECTIVE Vitals reviewed: All stable without fever I&O approximately 2 L out past 24 Miter Cutter, my review: Sinus Exam: alert oriented relaxed, some memory deficits are notable in seem to be at her baseline skin warm dry color a bit pale resps not labored lungs still with coarse breath sounds, no wheezing heart regular abd soft nondistended nontender, bowel sounds present limbs warm, still with edema of both legs with pitting but less than yesterday iv site ok Lab data: BUN up to 24 otherwise stable metabolic panel Notably neutrophils though decreased to 800, hemoglobin a bit lower as MCV still high, platelets still low but stable PROCEDURES DURING THIS ADMISSION: -echocardiogram I reviewed with Dr. Mu Mandel, ejection fraction 15%, dilated LV with global hypokinesis, biatrial enlargement, mildly dilated right ventricle pulmonary pressures 57, small pericardial effusion -CT scan chest with contrast I reviewed the images in detail with Dr. Alfredo Lee of pulmonology and my assessment differs from that of the radiologist who read the study. I see some mild emphysematous changes in the lung apices, some bronchiectasis and likely related scar at both lung bases, along with polygonal mosaic pattern attenuation in both lungs which may be due to pulmonary edema -bedside spirometry Objective: Vital Signs Temp Pulse Resp BP Pulse Ox 36.4 C 77 16 114/62 98 07/14/18 11:39 07/14/18 11:39 07/14/18 11:39 07/14/18 11:39 07/14/18 11:39 Laboratory Results 07/14/18 03:40 07/14/18 03:40 07/13/18 07/14/18 07/15/18 06:59 06:59 06:59 Intake Total 300 Output Total 1250 2000 Balance -950 -2000 - Time Spent With Patient Time Spent with Patient: greater than 35 minutes Time Spent with Patient: Greater than 35 minutes spent on this patients care, greater than 50% of time spent counseling, educating, and coordinating care regarding the above mentioned plan. ICD10 Worksheet Patient Problems: Problems Problem Status Onset CHF (congestive heart failure) Acute Hypoxia Acute Pulmonary edema Acute chronic disease mgmt/transitional care Acute
[2018-07-14] MEDS ORDERED: MAGNESIUM SULF 1 GM/DEXTROSE 100 ML IV ONE (14:42)
[2018-07-15] MEDS: IPRATROPIUM/ALBUTEROL 4GM MDI IH SCH ×4 (05:40→20:12)
[2018-07-15] MEDS: FUROSEMIDE 20 MG/2 ML VIAL IVP SCH (09:22)
[2018-07-15] MEDS: SPIRONOLACTONE 25 MG TAB PO SCH (09:23)
[2018-07-15] MEDS: CARVEDILOL 6.25 MG TAB PO SCH ×2 (09:23→18:05)
[2018-07-15] MEDS: ATORVASTATIN CALCIUM 20 MG TAB PO SCH (09:23)
[2018-07-15] MEDS: LISINOPRIL 40 MG TAB PO SCH (09:23)
[2018-07-15] MEDS: ALLOPURINOL 100 MG TAB PO SCH (09:23)
[2018-07-15] MEDS: ENOXAPARIN 40 MG/0.4 ML SYR SC SCH (09:24)
[2018-07-15] MEDS: MULTIVITAMINS 1 EACH TAB PO SCH (09:24)
[2018-07-15] MEDS: CITALOPRAM 20 MG TAB PO SCH (09:24)
[2018-07-15] MEDS: AZITHROMYCIN 250 MG TAB PO SCH (09:24)
[2018-07-15] MEDS: CLOPIDOGREL BISULFATE 75 MG TAB PO SCH (09:24)
[2018-07-15] MEDS: FLUTICASONE/SALMETER 100/50MCG DISKUS IH SCH ×2 (10:01→20:11)
--- NOTE | 2018-07-15 10:06 | PDCARPN ---
Cardiology Progress Note Assessment/Plan: Assessment: Vernell is a 82-year-old female with a newly diagnosed cardiomyopathy with EF 20%, and new onset CHF. This is likely nonischemic. She does not have associated significant valvular disease. She is doing well on diuretic therapy and beta-blockers. Creatinine 0.8 today. Coreg up-titrated to 6.25 mg twice daily yesterday with good tolerance. She reports no lightheadedness or SOB. Plan: We continue IV Lasix today, with consideration to switch to Lasix oral tomorrow. Plan for diagnostic right and left heart catheterization before discharge, or as an out-patient. 07/14/18 12:28 07/15/18 09:54 Feeling better today. NO SOB, no chest pain, and does not feel that she is retaining fluid in abdomen. Has good appetite, and ordering her breakfast. She is looking forward to eating this morning. Chronic CHF She has lost 13.3 Kg this visit. Continue on Aldactone and is now on Oral Lasix for diuresis maintenance. BNP today 10,300 CMP with EF 20%. On Carvedilol 6.25 mg BID with good tolerance..BP 117/70 today. Reviewed/Discussed With: family Objective: Vital Signs (8 Hrs) Temp Pulse Resp BP Pulse Ox 07/15/18 07:20 36.9 C 75 14 117/70 98 07/15/18 03:24 36.5 C 74 15 143/60 H 98 Intake/Output (24 Hrs) 07/14/18 07/15/18 07/16/18 05:59 05:59 05:59 Intake Total 1170 Output Total 1999 500 Balance -1999 670 Intake: Oral (ml) 1070 IV Intake (ml) 0 IV Infused (ml) 100 Magnesium Sulf 1 gm/ 100 Dextrose 100 ml @ 100 mls /hr IV ONCE ONE Rx#: [id number] Output: Urine (ml) 2000 250 Bedside Commode 1000 Catheter 1000 Toilet 250 Urine/Stool Mix (ml) 250 Toilet 250 Other: Weight 51.284 kg Number of Voids Incontinence 1 2 Toilet 1 Number of Stools Incontinence 1 Toilet 1 Result Diagrams: 07/14/18 03:40 07/15/18 03:23 - Physical Exam Constitutional: no apparent distress Cardiovascular: no rubs, no gallops, irregularly irregular Respiratory: no crackles, no wheezes, reduced air movement Skin: warm, no edema Neurologic: AAOx3 Psychiatric: cooperative, interactive ICD10 Worksheet Patient Problems: Problems Problem Status Onset chronic disease mgmt/transitional care Acute CHF (congestive heart failure) Acute Pulmonary edema Acute Hypoxia Acute
--- NOTE | 2018-07-15 11:43 | PDCONSULT ---
Shank Rander Note: Hematology/oncology consultation note Requesting physician: Dr. Brennan Boyd Reason for consultation: Thrombocytopenia and leukopenia History of present illness: Vernell is an 82-year-old female with no prior hematologic history who we are seeing for evaluation of leukopenia and thrombocytopenia. She does have a history of hypertension hyperlipidemia and prior stroke. She currently lives at home with her and lives independently. She was admitted to [facility] for workup of underlying shortness of breath. She was found to be hypoxic and further workup demonstrated an elevated BNP. She has since been diuresed for symptomatic heart failure. On admission she was found to have a slight leukopenia with a white blood cell count 2.5 and platelets being 98 with a normal hemoglobin. She denies any chest pain, weight loss, night sweats, or abdominal pain. Review of systems: 12 point review of systems was obtained and was otherwise negative unless stated in HPI. Past Surgical and medical history: History of prior ischemic stroke Hypertension Hyperlipidemia History of gastric ulcers Pancreatic surgery Family history: No history of any blood or cancer disorders within the family Social history: She lives independently with her locally. She is a former smoker. Medications: Reviewed in the EMR Allergies: Amoxicillin Physical examination: Temp Pulse Resp BP Pulse Ox 36.9 C 70 10 L 134/63 H 96 07/15/18 07:20 07/15/18 10:06 07/15/18 10:06 07/15/18 09:35 07/15/18 10:06 O2 (L/minute) 1 General: Elderly female appears comfortable sitting in her hospital chair in no acute distress HEENT: Nasal cannula in place oropharynx is clear Cardiovascular: Regular rate and rhythm Pulmonary: Clear to auscultation GI: Soft nontender nondistended bowel sounds are present, evaluation organomegaly slightly compromised by her sitting up Extremities: No cyanosis clubbing or edema Lymph: No appreciable lymphadenopathy Skin: No skin lesions Psych: Appropriate affect WBC 2.51 10^3/uL (3.80-9.50) L 07/14/18 03:40 RBC 3.79 10^6/uL (4.18-5.33) L 07/14/18 03:40 Hgb 12.4 g/dL (12.6-16.3) L 07/14/18 03:40 Hct 38.2 % (38.0-47.0) 07/14/18 03:40 MCV 100.8 fL (81.5-99.8) H 07/14/18 03:40 MCH 32.7 pg (27.9-34.1) 07/14/18 03:40 MCHC 32.5 g/dL (32.4-36.7) 07/14/18 03:40 RDW 16.2 % (11.5-15.2) H 07/14/18 03:40 Plt Count 98 10^3/uL (150-400) L 07/14/18 03:40 MPV 10.6 fL (8.7-11.7) 07/14/18 03:40 Neut % (Auto) 32.6 % (39.3-74.2) L 07/14/18 03:40 Lymph % (Auto) 57.8 % (15.0-45.0) H 07/14/18 03:40 [place] % (Auto) 8.0 % (4.5-13.0) 07/14/18 03:40 Eos % (Auto) 0.0 % (0.6-7.6) L 07/14/18 03:40 Baso % (Auto) 0.4 % (0.3-1.7) 07/14/18 03:40 Nucleat RBC Rel Count 0.0 % (0.0-0.2) 07/14/18 03:40 Absolute Neuts (auto) 0.82 10^3/uL (1.70-6.50) L 07/14/18 03:40 Absolute Lymphs (auto) 1.45 10^3/uL (1.00-3.00) 07/14/18 03:40 Absolute Monos (auto) 0.20 10^3/uL (0.30-0.80) L 07/14/18 03:40 Absolute Eos (auto) 0.00 10^3/uL (0.03-0.40) L 07/14/18 03:40 Absolute Basos (auto) 0.01 10^3/uL (0.02-0.10) L 07/14/18 03:40 Absolute Nucleated RBC 0.00 10^3/uL (0-0.01) 07/14/18 03:40 Immature Gran % 1.2 % (0.0-1.1) H 07/14/18 03:40 Seg Neutrophils % 49.0 % 07/11/18 19:42 Band Neutrophils % 1.0 % 07/11/18 19:42 Lymphocytes % 39.0 % 07/11/18 19:42 Monocytes % 8.0 % 07/11/18 19:42 Eosinophils % 0.0 % 07/11/18 19:42 Basophils % 1.0 % 07/11/18 19:42 Metamyelocytes % 2.0 % 07/11/18 19:42 Myelocytes % 0.0 % 07/11/18 19:42 Promyelocytes % 0.0 % 07/11/18 19:42 Blast Cells % 0.0 % 07/11/18 19:42 Immature Gran # 0.03 10^3/uL (0.00-0.10) 07/14/18 03:40 Absolute Seg Neuts 1.34 10^3/uL (1.70-6.50) L 07/11/18 19:42 Absolute Band Neuts 0.03 10^3/uL (0.00-0.70) 07/11/18 19:42 Absolute Lymphocytes 1.06 10^3/uL (1.00-3.00) 07/11/18 19:42 Absolute Monocytes 0.22 10^3/uL (0.30-0.80) L 07/11/18 19:42 Absolute Eosinophils 0.00 10^3/uL (0.03-0.40) L 07/11/18 19:42 Absolute Basophils 0.03 10^3/uL (0.02-0.10) 07/11/18 19:42 Absolute Metamyelocyte 0.05 10^3/mL (0.00-0.00) H 07/11/18 19:42 Absolute Myelocytes 0.00 10^3/mL (0.00-0.00) 07/11/18 19:42 Absolute Promyelocytes 0.00 10^3/uL (0.00-0.00) 07/11/18 19:42 Absolute Plasma Cells 0.00 10^3/uL (0.00-0.00) 07/11/18 19:42 Nucleated RBCs 0 /100 WBC (0-0) 07/11/18 19:42 RBC/WBC/PLT Morphology TNP 07/14/18 03:40 Absolute Blast Cells 0.00 10^3/uL (0.00-0.00) 07/11/18 19:42 Plasma Cells % 0.0 % 07/11/18 19:42 Platelet Estimate TNP 07/14/18 03:40 Polychromasia 1+ H 07/11/18 19:42 Oval Macrocytes 1+ H 07/11/18 19:42 Elliptocytes 1+ H 07/11/18 19:42 ESR < 1 MM/HR (0-30) 07/14/18 03:40 POC Sodium 143 mEq/L (135-145) 07/11/18 15:24 Sodium 136 mEq/L (135-145) 07/15/18 03:23 POC Potassium 3.4 mEq/L (3.3-5.0) 07/11/18 15:24 Potassium 4.0 mEq/L (3.5-5.2) 07/15/18 03:23 POC Chloride 105.0 mEq/L (97-110) 07/11/18 15:24 Chloride 100 mEq/L (97-110) 07/15/18 03:23 Carbon Dioxide 28 mEq/l (22-31) 07/15/18 03:23 POC Total CO2 24 mEq/L (22-31) 07/11/18 15:24 Anion Gap 8 mEq/L (6-14) 07/15/18 03:23 POC BUN 21 mg/dL (7-23) 07/11/18 15:24 BUN 29 mg/dL (7-23) H 07/15/18 03:23 Creatinine 0.8 mg/dL (0.6-1.0) 07/15/18 03:23 POC Creatinine 1.0 mg/dL (0.6-1.0) 07/11/18 15:24 Estimated GFR > 60 07/15/18 03:23 Glucose 83 mg/dL (70-100) 07/15/18 03:23 POC Glucose 102 mg/dL (70-100) H 07/11/18 15:24 POC Calcium 9.5 mg/dL (8.5-10.4) 07/11/18 15:24 Calcium 8.6 mg/dL (8.5-10.4) 07/15/18 03:23 Magnesium 1.9 mg/dL (1.6-2.3) 07/15/18 03:23 POC Troponin I 0.03 ng/mL (0.00-0.08) 07/11/18 15:24 Troponin I 0.014 ng/mL (0.000-0.034) 07/12/18 03:44 C-Reactive Protein < 5.0 mg/L (<10.0) 07/14/18 03:40 NT-Pro-B Natriuret Pep 16217 pg/mL (0-450) H 07/14/18 03:40 Vitamin B12 840 pg/mL (239-931) 07/13/18 03:40 TSH 2.780 uIU/mL (0.465-4.680) 07/11/18 19:42 Assessment and plan: Vernell is a very pleasant 82-year-old female who worsening for evaluation leukopenia and thrombocytopenia. 1. Leukopenia and thrombocytopenia: Her absolute neutrophil count is 0.8 and platelets are in the 100. I reviewed her medication list since she does not appear to have had any medications that could be significantly myelosuppressive. I did review her record in [facility] the last CBC drawn in March of 2016 the demonstrated white blood cell count 2.5 with an absolute neutrophil count of 0.44. Platelets were 125 at that time. I suspect that she has either immune related neutropenia versus an underlying low-grade myelodysplastic syndrome. Clinically she is without any infection or bleeding symptoms. I would recommend that she follow up with us in clinic to review her counts and would defer a bone marrow biopsy currently. I have ordered peripheral flow cytometry today. 2. Congestive heart failure 3. History of ischemic stroke
--- NOTE | 2018-07-15 13:40 | HOSPPROG ---
Hospitalist Progress Note Assessment/Plan: DIAGNOSES: * Acute hypoxemic respiratory failure - multifactorial, with acute systolic CHF prominent * New onset severe systolic congestive heart failure with global cardiomyopathy uncertain etiology, EF 15-20 * Hypomagnesemia, hypochloremia, hypokalemia; responding to treatment here * New diagnosis of bronchiectasis by CT scan * New diagnosis of COPD, former history of smoking * Polygonal Mosaic pattern lung attenuation noted on CT scan, uncertain etiology -may have postviral impact of an illness that when around her family in late April, could be pulmonary edema * Hypertension chronic and currently controlled * Macrocytosis with pancytopenia - chronicity and etiology uncertain last CBC here 9 years ago -I have asked Dr. Maria to see her and he is provided consultation in his note, concern for possible myelodysplastic disease versus an immune disease * Hyperlipidemia on statin * History of stroke * Memory deficits, mild-mod, chronic and stable PLANS: * Switch to p.o. Lasix, continue Aldactone * replacement of electrolytes by protocol * Low-salt diet * Left heart catheterization and right heart catheterization in near future as outpatient * Continue new Combivent and Advair inhalers * Dr. Maria has ordered flow cytometry studies, and he will arrange for her to have outpatient follow-up in Hematology Clinic for her pancytopenia * Continue attempt increase activity with physical occupational therapy * Will need custodial facility at discharge * Will need chronic follow-up in Heart failure Clinic and pulmonology Clinic Plan will be to discharge her to custodial facility on July 16 Seen by me on hospitalist rounds as well as multidisciplinary rounds today Reviewed with Dr. Mandel of Cardiology and Dr. 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 Mu Mnadel, ejection fraction 15%, dilated LV with global hypokinesis, biatrial enlargement, mildly dilated right ventricle pulmonary pressures 57, small pericardial effusion -CT scan chest with contrast I reviewed the images in detail with Dr. Alfredo Lee of pulmonology and my assessment differs from that of the radiologist who read the study. I see some mild emphysematous changes in the lung apices, some bronchiectasis and likely related scar at both lung bases, along with polygonal mosaic pattern attenuation in both lungs which may be due to pulmonary edema -bedside spirometry Objective: Vital Signs Temp Pulse Resp BP Pulse Ox 36.4 C 71 16 109/64 95 07/15/18 11:45 07/15/18 11:45 07/15/18 11:45 07/15/18 11:45 07/15/18 11:45 Laboratory Results 07/14/18 03:40 07/15/18 03:23 07/14/18 07/15/18 07/16/18 06:59 06:59 06:59 Intake Total 1170 Output Total 1999 500 Balance -2000 670 ICD10 Worksheet Patient Problems: Problems Problem Status Onset CHF (congestive heart failure) Acute Hypoxia Acute Pulmonary edema Acute chronic disease mgmt/transitional care Acute
[2018-07-15] MEDS ORDERED: POTASSIUM CL 10 MEQ TAB PO ONE (21:38)
[2018-07-16 04:19] LABS: PLATELET COUNT 91 10^3/uL (150-400)
[2018-07-16] MEDS: IPRATROPIUM/ALBUTEROL 4GM MDI IH SCH ×2 (05:56→10:34)
[2018-07-16 07:49] VITALS: BP 139/75
[2018-07-16] MEDS ORDERED: POTASSIUM CL 10 MEQ TAB PO ONE (08:43)
[2018-07-16] MEDS: CARVEDILOL 6.25 MG TAB PO SCH (08:56)
[2018-07-16] MEDS: CITALOPRAM 20 MG TAB PO SCH (08:57)
[2018-07-16] MEDS: SPIRONOLACTONE 25 MG TAB PO SCH (08:57)
[2018-07-16] MEDS: CLOPIDOGREL BISULFATE 75 MG TAB PO SCH (08:58)
[2018-07-16] MEDS: LISINOPRIL 40 MG TAB PO SCH (08:59)
[2018-07-16] MEDS: ALLOPURINOL 100 MG TAB PO SCH (09:00)
[2018-07-16] MEDS: MULTIVITAMINS 1 EACH TAB PO SCH (09:00)
[2018-07-16] MEDS: ATORVASTATIN CALCIUM 20 MG TAB PO SCH (09:00)
[2018-07-16] MEDS ORDERED: FUROSEMIDE 20 MG TAB PO SCH (09:00)
[2018-07-16] MEDS: ENOXAPARIN 40 MG/0.4 ML SYR SC SCH (09:02)
--- NOTE | 2018-07-16 09:32 | PDIAF ---
- Diagnosis Diagnosis: systolic chf, copd, gait instability Code Status: Full Code - Medication Management Discharge Medications: electronically signed and located in the Home Medication List. PICC Care - Routine: N/A - Orders Services needed: Registered Nurse, Certified Hand Marker, Master Mine Engineering Manager , Physical Therapy, Occupational Therapy Diet Recommendation: cardiac -low fat low salt Diet Texture: Regular Texture Diet Activity/Weight Bearing Restrictions: As tolerated Equipment: Oxygen, Walker Additional Instructions: The patient will need follow-up at [facility] The patient will need follow-up at [facility] for her low blood cell counts - Labs/Radiology BMP Date: 07/23/18 - Follow Up Care Current Providers and Referrals: NONE *PRIMARY CARE P,. [Primary Care Provider] - As per Instructions
[2018-07-16] MEDS: MAGNESIUM SULF 1 GM/DEXTROSE 100 ML IV ONE ×2 (09:39→09:45)
--- NOTE | 2018-07-16 09:40 | PDDCSUM ---
Discharge Summary Discharge Summary: DISCHARGE DIAGNOSES: * Acute systolic congestive heart failure, new onset ejection fraction 15-20% * COPD * Bronchiectasis * Mild pancytopenia uncertain etiology, asymptomatic * Hypoxemic respiratory failure, acute * Generalized deconditioning and gait instability CONSULTANTS: Dr. Izaiah Maria PROCEDURES: Echocardiogram showing global cardiomyopathy with ejection fraction 15-20% CT scan of chest showing congestive heart failure, mild emphysematous changes, and some bronchiectasis at the lung bases. HOSPITAL COURSE SUMMARY: This patient with no known history of heart or lung disease presents with a shortness of breath. The timing of onset of symptoms was a little bit difficult to discern but was clearly getting worse over the past week. It sounded like she may have had some respiratory infection type symptoms in April and never recovered after that. On assessment here she was found to be intake acute congestive heart failure with pulmonary edema, and on echocardiogram had global cardiomyopathy with ejection fraction 15-20%. There were no focal wall motion abnormalities or significant valve abnormalities. She also was found have some mild COPD and mild bronchiectasis. She was admitted the hospital and treated with Lasix diuresis and Coreg was added along was by relaxed on. She was continued on her lisinopril. She tolerated all these treatments well and she diuresed very nicely. She is also treated with some antibiotic for ongoing cough bronchiectasis and albuterol and Advair were added for her COPD. Is felt that she would benefit from diagnostic angiography and the patient is agreeing to this procedure, but we are planning to this in the near future in the outpatient setting. There has been no signs of ischemia here or arrhythmia at this time. Over the course of her hospital stay her breathing has improved quite significantly. She still hypoxemic requiring oxygen but she is able to get up and walk around much more easily. She is fairly weak and deconditioned and so at this point will need some ongoing rehabilitation and will [facility] for ongoing physical therapy at this point. Incidentally was noted that the patient is neutropenic with 800 neutrophils and also has low platelet count in the 80,000 range. These numbers were abnormally low a couple years ago tested elsewhere but are lower now than they were in the past. She has a borderline normocytic anemia. She is felt to probably have a primary marrow disorder but as she is asymptomatic from this we have not been aggressive with diagnosis here. There is a flow cytometry study ordered and pending at this time. She will need follow-up in the hematology clinic. PENDING TEST RESULTS: Flow cytometry blood cells MEDICATION CHANGES: Addition of carvedilol 6.25 twice daily Addition of Advair 100/50 Addition of Lasix 20 mg daily Addition of Aldactone 12.5 mg daily Addition of albuterol inhaler She will continue her lisinopril FOLLOW-UP PLAN: At this time she is transferred to [facility] for physical therapy rehabilitation She will follow up with Dr. Mandel in Cardiology Clinic in 2 weeks She will follow up with Dr. Maria in Hematology in 2-4 weeks Greater than 35 minutes bedside and care coordination time today
[2018-07-16] MEDS: FLUTICASONE/SALMETER 100/50MCG DISKUS IH SCH (10:34)
--- NOTE | 2018-07-16 11:22 | ASMTLACE ---
GREGG Length of stay for Answers: 4-6 days current admission Acuity / Level of Answers: Yes Care: Did the patient have an inpatient admission? Comorbidities - select Answers: Cerebrovascular disease all that apply (CVA, TIA, aneurysms, vasc ular dementia) Chronic pulmonary disease Congestive heart failure Other Notes: HTN; HLD # of Emergency department Answers: 1-2 visits in the last 6 months Social determinants Answers: Mental health diagnosis (anxiety, depression, pers onality disorders, etc.) Score: 17 Date Signed: 07/16/2018 11:21 AM Electronically Signed By:Deborah Andre
--- NOTE | 2018-07-16 11:37 | ASDISCHSUM ---
Discharge Information Plan Status:SNF Medically Cleared to Leave:07/16/2018 Discharge Date:07/16/2018 CM D/C Disposition: ADT D/C Disposition:[facility] Facility Projected Discharge Date:07/16/2018 11:00 AM Transportation at D/C: Discharge Delay Reason: Follow-Up Date:07/16/2018 11:00 AM Discharge Slot: Final Diagnosis: Placement Information Referral Type:*Group Home/SNF Referral ID:[id number] Provider Name:[facility] Address 1:[address] Address 2: City:[place] Selection Factors: State:[place] Patient Contact Information Contact Name:RON Relationship: Address:[address] Work Phone: [facility]:[place] Alternate Phone: State/Zip Code:[place] [address] Email: Financial Information Financial Class:Medicare Primary Plan Desc:MEDICARE INPATIENT Primary Plan Number:[id number] Secondary Plan Desc:[facility] Secondary Plan Number:[id number] Assessment Information LACE LACE Length of stay for Answers: 4-6 days current admission Acuity / Level of Answers: Yes Care: Did the patient have an inpatient admission? Comorbidities - select Answers: Cerebrovascular disease all that apply (CVA, TIA, aneurysms, vasc ular dementia) Chronic pulmonary disease Congestive heart failure Other Notes: HTN; HLD # of Emergency department Answers: 1-2 visits in the last 6 months Social determinants Answers: Mental health diagnosis (anxiety, depression, pers onality disorders, etc.) Score: 17 Date Signed: 07/16/2018 11:21 AM Electronically Signed By:Deborah Andre [facility] CM Progress Note CM Note CM Note Notes: Pt in for CHF, resides with and has dghtr local. Today OT rec home care, PT rec SNF. Spoke with pt and Juan at bedside. This CM provided [facility] SNF list and provided education. Pt plans to discuss with family and let CM know thoughts on SNF tomorrow. Juan plans to drive to visit pt daily so a close location is important, they report [facility] and [facility] are closest SNFs to pt home. CM to follow. D/c plan of care: SNF vs [facility] Date Signed: 07/12/2018 04:38 PM Electronically Signed By:KATHLEEN Tyler [facility] CM Progress Note CM Note CM Note Notes: 07/13/2018 Case Management Note Met w/pt Juan [phone] and daughter Ingrid [phone]. Discussed recommendation for SNF rehab. All in agreement. First choice is [facility]. Faxed referrals to [facility] and [facility]. Both accepted pt. Pt chose [facility] which is close to home and easier for Juan to visit daily. Case Management d/c poc: [facility]. Case Management to follow. Date Signed: 07/13/2018 02:57 PM Electronically Signed By:Michelle Lane RN Case Management Discharge Plan Note Case Management Discharge Discharge Order Complete? Answers: Yes Patient to Obtain Answers: Other Notes: [facility] Medications Transportation Arranged Answers: Other Notes: [facility] w/c transportation Transport will Pick (Date 07/16/2018 12:30 PM & Time) EMTALA Complete Answers: No Case Management Transport Answers: No Form Complete Faxed Final Orders Answers: Yes Agency/Facility Transfer Answers: Yes Report Printed & Faxed to Receiving Agency Family Notified Answers: Yes Discharge Comments Notes: Pts case discussed in tx rounds and w/ Enrrique, RN. Pt is being d/c'd today to [facility]. CM set up transportation w/ Yvonne at [facility]. DC orders sent. Mo will call to give report. CM available for changes. Plan: [facility] Date Signed: 07/16/2018 11:36 AM Electronically Signed By:SABINO Agosto Intervention Information Intervention Type:*Incorrect Registration Date of Service:07/11/2018 10:12 AM Patient Type:Observation Staff Member:DANIELLE Centeno, Nelly Hours: Discipline: Severity: Comment: Intervention Type:*IM-Signed Date of Service:07/13/2018 12:00 PM Patient Type:Inpatient Staff Member:Deborah Andre Hours: Discipline: Severity: Comment: Intervention Type:*IM-Signed Date of Service:07/16/2018 10:49 AM Patient Type:Inpatient Staff Member:Suzanne Reddy Hours: Discipline: Severity: Comment:
== END 2018-07-16 12:41 | DRG 291 ==
LOC: CED 14:25 → CEDHOLD 17:08 → OBSVTOIN 18:44 → F2W 18:47
PROVIDERS: ADMIT Internal Medicine; ATTEND Internal Medicine
DX: I50.21 Acute systolic (congestive) heart failure (principal); J96.01 Acute respiratory failure with hypoxia; J47.9 Bronchiectasis, uncomplicated; D61.818 Other pancytopenia; R26.9 Unspecified abnormalities of gait and mobility; F32.9 Major depressive disorder, single episode, unspecified; E78.5 Hyperlipidemia, unspecified; I10 Essential (primary) hypertension; Z87.11 Personal history of peptic ulcer disease; Z87.891 Personal history of nicotine dependence
CPT/HCPCS: 71046-PO; 71275-PO; 80048-ER; 82607-90; 84484-ER; 85025-QW-ER; 85379-QW-ER; 96374-ER; 96375-ER; 97110-GP; 97116-GP; 97161-GP; 97165-GO; 97530-GP; 97535-GO; 99285-ER; J1650; J1940; J1956; J3475; Q9967

== ENCOUNTER → 2018-08-24 | Outpatient (CLI) | payer OTHER | LOC: BHFA 09:30 | PROVIDERS: ATTEND Internal Medicine Cardiovascular Disease | DX: R06.02 Shortness of breath (principal) | CPT/HCPCS: 78452; 93017; A9500; J2785 ==